=== PATIENT | female | born 1960 | race Two or more races ===

== ENCOUNTER 2021-07-11 06:10 | Day surgery (SDC) | payer OTHER ==
[~2021-07-11 06:10] MED LIST: MEDROL4 MG PO; NORVASC5 MG PO; PRINIVIL20 MG PO; ZANAFLEX2 M1 PO
== END 2021-07-11 21:05 | disposition home or self-care (01) ==
LOC: CIR.AMB 06:10
PROVIDERS: ATTEND Orthopaedic Surgery Hand Surgery
DX: S52.532A Colles' fracture of left radius, initial encounter for closed fracture (principal); Z20.822 Contact with and (suspected) exposure to COVID-19
CPT/HCPCS: 25609; 25118; 25280; C1776